=== PATIENT | female | born 1960 | race African-American/Black ===

== ENCOUNTER 2022-11-24 23:43 | Emergency (ER) | payer BC, OTHER, SELFPAY ==
[2022-11-25] MEDS ORDERED: Ibuprofen 200 MG TAB ONE (00:20)
[2022-11-25] MEDS ORDERED: VANCOMYCIN 2 GRAM/400 ML BAG 2 GM in Premix Bag 1 BAG IVPB ONE (01:30)
[2022-11-25 01:32] LABS: #Eosinphils 0.2 10x3/uL (0.0-0.5); #Monocytes 0.2 10x3/uL (0.0-1.1); #Neutrophils 7.7 10x3/uL (1.5-8.4); %Basophils 0.2 % (0.0-2.0); %Eosinophils 1.9 % (0.0-6.0); %Lymphocytes 5.6 % (18.0-47.0); %Monocytes 2.8 % (0.0-10.0); %Neutrophils 89.3 % (40.0-75.0); Hemoglobin 12.4 g/dL (12.0-15.5); Mean Corpuscular HGB CONC 33.6 g/dL (32.0-36.0); Mean Corpuscular Hemoglobin 29.8 pg (27.0-33.0); Mean Corpuscular Volume 88.7 fl (81.6-98.3); Mean Platelet Volume 12.3 fl (7.4-10.4); Platelet Count 181 10x3/uL (150-450); RBC Distribution Width 12.5 % (11.5-14.5); Red Blood Cell (RBC) Count 4.16 10x6/uL (3.90-5.03); White Blood Cell (WBC) Count 8.6 10x3/uL (3.5-10.5)
[2022-11-25 01:46] LABS: ALT (SGPT) 30 U/L (8-55); AST (SGOT) 39 U/L (5-34); Albumin 3.7 g/dL (3.4-4.8); Alkaline Phosphatase 112 U/L (40-110); Anion Gap 17 mmol/L (10-20); BUN (Urea Nitrogen) 14 mg/dL (9.8-20.1); Bilirubin, Total 0.9 mg/dL (0.2-1.2); Calc. Creatinine Clearance 0 mL/min (70-130); Carbon Dioxide 21 mmol/L (23-31); Chloride 104 mmol/L (98-107); Estimated GFR 71; Globulin 3.4 g/dL (2.4-3.5); Glucose 164 mg/dL (80-115); Potassium 3.8 mmol/L (3.5-5.1); Protein, Total 7.1 g/dL (5.8-8.1); Sodium 138 mmol/L (136-145)
[2022-11-25] MEDS ORDERED: Cefepime 2 GM VIAL ONE (03:24)
== END 2022-11-25 05:01 | disposition short-term general hospital (02) ==
LOC: CSHERS 23:43
DX: M79.3 Panniculitis, unspecified (principal); E78.5 Hyperlipidemia, unspecified; I10 Essential (primary) hypertension
CPT/HCPCS: 36415; 74177; 80053; 83605; 84145; 85025; 86140; 87040; 96361; 96365; 96375; J0692; J3370

== ENCOUNTER 2022-12-17 15:00 | Outpatient (CLI) | payer SELFPAY | END 2022-12-17 15:01 | disposition home or self-care (01) | LOC: CSHWCC 15:00 | PROVIDERS: ATTEND Nurse Practitioner Family | DX: L98.491 Non-pressure chronic ulcer of skin of other sites limited to breakdown of skin (principal) | CPT/HCPCS: 97597; 99203; G0463 ==